=== PATIENT | male | born 1940 | race Caucasian/White ===

== ENCOUNTER 2021-07-19 13:07 | Outpatient (CLI) | payer MEDICARE, BC | END 2021-07-19 23:59 | disposition home or self-care (01) | LOC: CARD DIAG 13:07 | PROVIDERS: ATTEND Internal Medicine Cardiovascular Disease | DX: I08.1 Rheumatic disorders of both mitral and tricuspid valves (principal); I11.9 Hypertensive heart disease without heart failure | CPT/HCPCS: 93306 ==